=== PATIENT | female | born 1965 | race Caucasian/White ===

== ENCOUNTER 2017-01-17 07:29 | Day surgery (SDC) | payer OTHER ==
[2017-01-16 12:15] VITALS: BMI 27.4
[2017-01-17] MEDS ORDERED: PROPOFOL 20 ML ONE ×5 (09:18)
[2017-01-17 10:03] VITALS: TEMP 97.5
[2017-01-17 11:48] VITALS: BP 105/69; PULSE 60
--- NOTE | 2017-01-18 11:17 | PATH ---
Surgical Pathology Report Patient Name: JEROME BRAN [facility]. Rec. #: [id number] /Age/Gender: 1965 (Age: 51) / F Account: [id number] Location: [facility]-ENDOSCOPY Taken: 01/17/2017 Received: 01/17/2017 Reported: 01/18/2017 Physicians: Ian Moss D.O. Specimen(s) Received A: BX ANGULARIS & BODY B: SIGMOID POLYP Clinical History GERD, nausea, colon screening Nausea, sigmoid polyp Final Diagnosis A. STOMACH, ANGULARIS AND BODY, BIOPSY: FOCAL MILD CHRONIC GASTRITIS. IMMUNOSTAIN FOR H. PYLORI IS NEGATIVE. B. COLON, SIGMOID, BIOPSY: TUBULAR ADENOMA. Electronically Signed Baltazar Nicolas M.D. Gross Description A. Received in formalin, labeled "biopsy angularis and body" is a coelho, irregular portion of soft tissue measuring 0.5 cm. in greatest dimension. The specimen is submitted in toto in one cassette. B. Received in formalin, labeled "sigmoid polyp" is a coelho, irregular portion of soft tissue measuring 0.2 cm. in greatest dimension. The specimen is submitted in toto in one cassette. /01/17/2017 saudi01/17/2017
== END 2017-01-17 11:47 | disposition home or self-care (01) ==
LOC: JASU-ENDO 07:29
PROVIDERS: ATTEND Internal Medicine Gastroenterology
PROC: 0DB68ZX Excision of Stomach, Via Natural or Artificial Opening Endoscopic, Diagnostic (ICD-10-PCS; 2017-01-17)
PROC: 0DBN8ZX Excision of Sigmoid Colon, Via Natural or Artificial Opening Endoscopic, Diagnostic (ICD-10-PCS; principal; 2017-01-17 09:00)
DX: Z12.11 Encounter for screening for malignant neoplasm of colon (principal); D12.5 Benign neoplasm of sigmoid colon; K64.8 Other hemorrhoids; R11.0 Nausea
CPT/HCPCS: 88305-TC; 88342-TC

== ENCOUNTER 2017-07-24 08:30 | Emergency (ER) | payer OTHER ==
[2017-07-24 08:36] VITALS: BP 103/65; PULSE 69; TEMP 98.5; BMI 27.4
[2017-07-24] MEDS ORDERED: IBUPROFEN 600 MG TABLET (FP) PO ONE ×2 (09:16→09:19)
--- NOTE | 2017-07-24 10:17 | PDOC ---
History of Present Illness - General Chief Complaint: Pain Stated Complaint: LT LEG/ ANKLE PAIN Time Seen by Provider: 07/24/17 08:54 History Source: Patient Exam Limitations: No Limitations - History of Present Illness Initial Comments: 07/24/17 10:12 51 yr female with left foot pain for 2 days after doing moving at home, pt denies direct trauma . no fever, skin intact. Pt has pain to the inside of the foot and some mild redness to the inside of the foot. no joint pain . no swelling. 07/24/17 14:51 Severity: Yes: mild Past History - Past Medical History Allergies/Adverse Reactions: Allergies Allergy/AdvReac Type Severity Reaction Status Date / Time ivp Allergy Hives Uncoded 07/24/17 08:36 nuts Allergy Hives Uncoded 07/24/17 08:36 shellfish Allergy Hives Uncoded 07/24/17 08:36 Home Medications: Ambulatory Orders Ranitidine HCl [Zantac 75] 75 mg PO DAILY 06/12/12 Rizatriptan Benzoate [Maxalt] 10 mg PO PRN PRN 01/18/14 Amitriptyline HCl [Elavil -] 25 mg PO HS 06/21/16 Diclofenac Sodium 50 mg PO BID 06/21/16 Wheat Dextrin [Benefiber] 1 each PO DAILY 06/21/16 Cetirizine HCl [Zyrtec -] 10 mg PO HS 01/16/17 Anemia: No Asthma: No Cancer: No Cardiac Disorders: Yes (MVP) CVA: No COPD: No CHF: No Dementia: No Diabetes: No GI Disorders: Yes (IBS, REFLUX, GASTROPARESIS) Disorders: No HTN: No Hypercholesterolemia: No Liver Disease: No Seizures: No Thyroid Disease: No Other medical history: autoimmune disease - Surgical History Abdominal Surgery: No Appendectomy: No Cardiac Surgery: No Cholecystectomy: No Lung Surgery: No Neurologic Surgery: No Orthopedic Surgery: Yes (LEFT ROTART CUFF REPAIR) - Family Disease History Family Disease History: Heart Disease: Grandparents - Suicide/Smoking/Psychosocial Hx Smoking Status: No Smoking History: Never smoked Have you smoked in the past 12 months: No Number of Cigarettes Smoked Daily: 0 Hx Alcohol Use: No Drug/Substance Use Hx: No Substance Use Type: None Hx Substance Use Treatment: No Review of Systems - Review of Systems Able to Perform ROS?: Yes Is the patient limited Beninese proficient: No Constitutional: No: Symptoms Reported Musculoskeletal: Yes: Symptoms Reported Integumentary: No: Symptoms Reported *Physical Exam - Vital Signs Last Vital Signs Temp Pulse Resp BP Pulse Ox 98.5 F 69 20 103/65 96 07/24/17 08:34 07/24/17 08:34 07/24/17 08:34 07/24/17 08:34 07/24/17 08:34 - Physical Exam General Appearance: Yes: Nourished, Appropriately Dressed HEENT: positive: EOMI, SHAY Neck: positive: Supple. negative: Tender Respiratory/Chest: positive: Lungs Clear, Normal Breath Sounds. negative: Chest Tender Cardiovascular: positive: Regular Rhythm, Regular Rate Gastrointestinal/Abdominal: positive: Normal Bowel Sounds, Soft Musculoskeletal: positive: Normal Inspection Extremity: positive: Normal Capillary Refill, Normal Inspection, Normal Range of Motion, Tender (base of left foot no swelling or deformity, mild erythema to the medial side proximal foot , no joint tenderness) Integumentary: positive: Normal Color, Dry, Warm Neurologic: positive: Fully Oriented, Alert, Normal Mood/Affect, Normal Response , Motor Strength 5/5 Procedures - Splinting Progress: 07/24/17 10:19 alan wrap hard sole shoe to the left foot ED Treatment Course - RADIOLOGY Radiology Studies Ordered: Category Date Time Status ANKLE & FOOT-LEFT* [RAD] Stat Radiology 07/24/17 09:17 Taken Medical Decision Making - Medical Decision Making 07/24/17 10:18 cc: foot pain no history of gout pt has auto immune disorder no history of gout no history of direct trauma will xray to r/o fracture r/o arthritis no evidence of gout pt discharged home with strict follow up instructions all questions asked and answered 07/24/17 14:52 07/24/17 14:57 *DC/Admit/Observation/Transfer Diagnosis at time of Disposition: Foot pain, left - Discharge Dispostion Disposition: HOME Condition at time of disposition: Good - Referrals Referrals: Srinath Bullock MD [Primary Care Provider] - - Patient Instructions Additional Instructions: follow with your doctor for follow up if pain continues or worsens elevate the foot apply ice every 2hrs for 15 minutes, you can also alternate with heat take advil or motrin every 8hrs as directed use the alan wrap and hard sole shoe for comfort - Post Discharge Activity Forms/Work/School Notes: Back to Work
== END 2017-07-24 10:19 | disposition home or self-care (01) ==
LOC: JERFT 08:30
DX: M79.672 Pain in left foot (principal); I34.1 Nonrheumatic mitral (valve) prolapse; K21.9 Gastro-esophageal reflux disease without esophagitis; K58.9 Irritable bowel syndrome, unspecified; K31.84 Gastroparesis; D89.89 Other specified disorders involving the immune mechanism, not elsewhere classified
CPT/HCPCS: 73610-TC-LT; 73630-TC-LT; 99281-25

== ENCOUNTER 2018-01-29 08:36 | Emergency (ER) | payer OTHER ==
[2018-01-29 09:04] VITALS: BP 96/58; PULSE 79; TEMP 98.5; BMI 25.7
[2018-01-29] MEDS ORDERED: IBUPROFEN 400 MG TABLET (FP) PO ONE ×2 (09:07→09:09)
--- NOTE | 2018-01-29 09:12 | PDOC ---
History of Present Illness - General Chief Complaint: Pain Stated Complaint: LT JOINT PAIN Time Seen by Provider: 01/29/18 08:56 History Source: Patient Exam Limitations: No Limitations - History of Present Illness Initial Comments: 01/29/18 09:07 Came for evaluation of left knee pain that's progressively worsened although not severe the past week. 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 Has had no exercise changes. Denies fever, redness, or any lower leg swelling. No history of DVT, shortness of breath, chest pain or palpitations. And has taken ibuprofen or Tylenol with minimal resolved. 01/29/18 13:13 Occurred: reports: last week Severity: reports: moderate Pain Location: reports: lower extremity (left knee ) Method of Injury: Yes: unknown Modifying Factors: improves with: None Associated Symptoms (Fall): denies symptoms Past History - Travel Traveled outside of the country in the last 30 days: No Close contact w/someone who was outside of country & ill: No - Past Medical History Allergies/Adverse Reactions: Allergies Allergy/AdvReac Type Severity Reaction Status Date / Time Iodinated Contrast- Oral and Allergy Hives Verified 01/29/18 08:45 IV Dye ivp Allergy Hives Uncoded 01/29/18 08:45 nuts Allergy Hives Uncoded 01/29/18 08:45 shellfish Allergy Hives Uncoded 01/29/18 08:45 Home Medications: Ambulatory Orders Ranitidine HCl [Zantac 75] 75 mg PO DAILY 06/12/12 Rizatriptan Benzoate [Maxalt] 10 mg PO PRN PRN 01/18/14 Amitriptyline HCl [Elavil -] 25 mg PO HS 06/21/16 Diclofenac Sodium 50 mg PO BID 06/21/16 Wheat Dextrin [Benefiber] 1 each PO DAILY 06/21/16 Cetirizine HCl [Zyrtec -] 10 mg PO HS 01/16/17 Ibuprofen 400 mg PO Q6H PRN #30 tablet 01/29/18 Anemia: No Asthma: No Cancer: No Cardiac Disorders: Yes (MVP) CVA: No COPD: No CHF: No Dementia: No Diabetes: No GI Disorders: Yes (IBS, REFLUX, GASTROPARESIS) Disorders: No HTN: No Hypercholesterolemia: No Liver Disease: No Seizures: No Thyroid Disease: No - Surgical History Abdominal Surgery: No Appendectomy: No Cardiac Surgery: No Cholecystectomy: No Lung Surgery: No Neurologic Surgery: No Orthopedic Surgery: Yes (LEFT ROTART CUFF REPAIR) - Family Disease History Family Disease History: Heart Disease: Grandparents - Suicide/Smoking/Psychosocial Hx Smoking Status: No Smoking History: Never smoked Have you smoked in the past 12 months: No Number of Cigarettes Smoked Daily: 0 Hx Alcohol Use: No Drug/Substance Use Hx: No Substance Use Type: None Hx Substance Use Treatment: No Trauma Specific PMHX - Complaint Specific PMHX Arthritis: No Back Injury: No Neck Injury: No Hx Sacro Iliac Joint Dysfunction: No Review of Systems - Review of Systems Able to Perform ROS?: Yes Is the patient limited Kazakh proficient: Yes Constitutional: Yes: See HPI. No: Symptoms Reported, Malaise HEENTM: Yes: See HPI. No: Symptoms Reported : No: Symptoms Reported Musculoskeletal: Yes: Symptoms Reported, See HPI, Joint Pain, Joint Swelling ( left knee, primarily posterior fossa) Neurological: No: Symptoms reported All Other Systems: Reviewed and Negative *Physical Exam - Vital Signs Last Vital Signs Temp Pulse Resp BP Pulse Ox 98.5 F 79 19 96/58 99 01/29/18 08:45 01/29/18 08:45 01/29/18 08:45 01/29/18 08:45 01/29/18 08:45 - Physical Exam General Appearance: Yes: Nourished, Appropriately Dressed. No: Apparent Distress HEENT: positive: SHAY, Normal ENT Inspection, TMs Normal, Pharynx Normal Neck: positive: Supple. negative: Tender Respiratory/Chest: positive: Lungs Clear Musculoskeletal: positive: Normal Inspection. negative: Vertebral Tenderness Extremity: positive: Normal Inspection, Normal Range of Motion (ambulatory without unsteadiness or limp. Has no fullness, no reproduced tenderness in posterior fossa. Knee is stable without tenderness reproduced along medial or lateral aspects. 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 Recommended neoprene sleeve, NSAIDs, and follow-up with Dr. Moreau who she has seen in the past for other knee issues. *DC/Admit/Observation/Transfer Diagnosis at time of Disposition: Knee pain, left Qualifiers: Chronicity: acute Qualified Code(s): M25.562 - Pain in left knee - Discharge Dispostion Disposition: HOME Condition at time of disposition: Stable Decision to Admit order: No - Prescriptions Prescriptions: Ibuprofen 400 mg PO Q6H PRN #30 tablet PRN Reason: Pain - Referrals Referrals: Miguel Moreau MD [Staff Physician] - - Patient Instructions Printed Discharge Instructions: DI for Knee Pain Additional Instructions: Rest, ice to area on and off for 15 minutes 4-6 times a day Avoid heavy lifting or exercise until pain and swelling is resolved or until further directed Keep area highly elevated to reduce swelling Use splints/Nasim wrap as directed Followup with orthopedist in one to 2 days if not improving, if significantly improved may wait one week for followup with orthopedist May use ibuprofen 2-200 mg tablets every 6 hours as needed for pain - Post Discharge Activity Forms/Work/School Notes: Back to Work
== END 2018-01-29 09:19 | disposition home or self-care (01) ==
LOC: JER 08:36
DX: S86.112A Strain of other muscle(s) and tendon(s) of posterior muscle group at lower leg level, left leg, initial encounter (principal); X58.XXXA Exposure to other specified factors, initial encounter; Y93.89 Activity, other specified; Y92.89 Other specified places as the place of occurrence of the external cause; Y99.8 Other external cause status; I34.1 Nonrheumatic mitral (valve) prolapse; Z87.19 Personal history of other diseases of the digestive system
CPT/HCPCS: 99281-25

== ENCOUNTER 2018-07-09 12:23 | Emergency (ER) | payer OTHER ==
[2018-07-09 12:40] VITALS: BP 103/73; PULSE 71; TEMP 98.5; BMI 23.1
--- NOTE | 2018-07-09 13:23 | PDOC ---
History of Present Illness - General Chief Complaint: Cold Symptoms Stated Complaint: COUGHING Time Seen by Provider: 07/09/18 13:13 - History of Present Illness Initial Comments: 07/09/18 13:19 2-year-old female presents for evaluation of cough and runny nose 3 days without associated symptoms Past History - Past Medical History Allergies/Adverse Reactions: Allergies Allergy/AdvReac Type Severity Reaction Status Date / Time Iodinated Contrast- Oral and Allergy Hives Verified 07/09/18 12:40 IV Dye ivp Allergy Hives Uncoded 07/09/18 12:40 nuts Allergy Hives Uncoded 07/09/18 12:40 shellfish Allergy Hives Uncoded 07/09/18 12:40 Home Medications: Ambulatory Orders Ranitidine HCl [Zantac 75] 75 mg PO DAILY 06/12/12 Rizatriptan Benzoate [Maxalt] 10 mg PO PRN PRN 01/18/14 Diclofenac Sodium 50 mg PO BID 06/21/16 Wheat Dextrin [Benefiber] 1 each PO DAILY 06/21/16 Cetirizine HCl [Zyrtec -] 10 mg PO HS 01/16/17 Ibuprofen 400 mg PO Q6H PRN #30 tablet 01/29/18 Anemia: No Asthma: No Cancer: No Cardiac Disorders: Yes (MVP) CVA: No COPD: No CHF: No Dementia: No Diabetes: No GI Disorders: Yes (IBS, REFLUX, GASTROPARESIS) Disorders: No HTN: No Hypercholesterolemia: No Liver Disease: No Seizures: No Thyroid Disease: No - Surgical History Abdominal Surgery: No Appendectomy: No Cardiac Surgery: No Cholecystectomy: No Lung Surgery: No Neurologic Surgery: No Orthopedic Surgery: Yes (LEFT ROTART CUFF REPAIR) - Family Disease History Family Disease History: Heart Disease: Grandparents - Suicide/Smoking/Psychosocial Hx Smoking Status: No Smoking History: Never smoked Have you smoked in the past 12 months: No Number of Cigarettes Smoked Daily: 0 Hx Alcohol Use: No Drug/Substance Use Hx: No Substance Use Type: None Hx Substance Use Treatment: No Review of Systems - Review of Systems Constitutional: Yes: See HPI. No: Chills, Diaphoresis, Fever, Malaise, Night Sweats HEENTM: Yes: See HPI, Nose Congestion Respiratory: Yes: Cough All Other Systems: Reviewed and Negative *Physical Exam - Vital Signs Last Vital Signs Temp Pulse Resp BP Pulse Ox 98.5 F 71 18 103/73 100 07/09/18 12:38 07/09/18 12:38 07/09/18 12:38 07/09/18 12:38 07/09/18 12:38 - Physical Exam Comments: HEAD: NC/AT EYES: Conjuntiva clear Ears: Canals and TM's normal NOSE: Clear rhinorrhea THROAT: Moist mucous membrances, oral pharanx clear, uvula midline NECK: Supple without adenopathy CARDIAC: S1 S2 LUNGS: CTA Full and Equal breath sounds ABDOMEN: Soft NT ND MS: Full ROM in all joints without edema NEUROLOGIC: No gross sensory or motor deficits, NVID SKIN: Normal color and temperature no lesions or rashes 07/09/18 13:20 *DC/Admit/Observation/Transfer Diagnosis at time of Disposition: Viral upper respiratory infection - Discharge Dispostion Disposition: HOME Condition at time of disposition: Stable Decision to Admit order: No - Referrals Referrals: Eric Rodriguez [Non Staff, Medical] - - Patient Instructions Printed Discharge Instructions: DI for Viral Upper Respiratory Infection -- Adult Additional Instructions: Return to the emergency room should symptoms worsen or go unresolved artery develop a fever. Follow-up with your primary care physician or the recommended for you in one to 2 days for further evaluation and treatment options. Mucinex DM and will help with her coughing topi sleep at night may take Tylenol and Motrin as needed and as directed. - Post Discharge Activity
== END 2018-07-09 13:25 | disposition home or self-care (01) ==
LOC: JERFT 12:23
DX: J06.9 Acute upper respiratory infection, unspecified (principal); I34.1 Nonrheumatic mitral (valve) prolapse; K58.9 Irritable bowel syndrome, unspecified; K21.9 Gastro-esophageal reflux disease without esophagitis
CPT/HCPCS: 99281-25

== ENCOUNTER 2018-07-31 07:41 | Emergency (ER) | payer OTHER ==
--- NOTE | 2018-07-31 07:50 | PDOC ---
History of Present Illness - General Chief Complaint: Injury Stated Complaint: FALL Time Seen by Provider: 07/31/18 07:48 - History of Present Illness Initial Comments: Chief complaint knee pain History of present illness: 52 years old past medical history significant for mitral valve prolapse, neuropathy, presents ED status post mechanical fall. Patient tripped on an uneven surface in a parking lot landed on her right knee sustained abrasions to the right knee. There was no prodrome of headache dizziness lightheadedness shortness of breath chest pain prior to the fall. She is complaining of very mild to 10 pain to the knee exacerbated by movement alleviated by rest Past History - Past Medical History Allergies/Adverse Reactions: Allergies Allergy/AdvReac Type Severity Reaction Status Date / Time Iodinated Contrast- Oral and Allergy Hives Verified 07/31/18 07:50 IV Dye ivp Allergy Hives Uncoded 07/31/18 07:50 nuts Allergy Hives Uncoded 07/31/18 07:50 shellfish Allergy Hives Uncoded 07/31/18 07:50 Home Medications: Ambulatory Orders Ranitidine HCl [Zantac 75] 150 mg PO DAILY 06/12/12 Gabapentin [Neurontin -] 300 mg PO BID 07/31/18 Anemia: No Asthma: No Cancer: No Cardiac Disorders: Yes (MVP) CVA: No COPD: No CHF: No Dementia: No Diabetes: No GI Disorders: Yes (IBS, REFLUX, GASTROPARESIS) Disorders: No HTN: No Hypercholesterolemia: No Liver Disease: No Seizures: No Thyroid Disease: No Other medical history: Raynauds dis. - Surgical History Abdominal Surgery: No Appendectomy: No Cardiac Surgery: No Cholecystectomy: No Lung Surgery: No Neurologic Surgery: No Orthopedic Surgery: Yes (LEFT ROTART CUFF REPAIR) - Family Disease History Family Disease History: Heart Disease: Grandparents - Suicide/Smoking/Psychosocial Hx Smoking Status: No Smoking History: Never smoked Have you smoked in the past 12 months: No Number of Cigarettes Smoked Daily: 0 Information on smoking cessation initiated: No Hx Alcohol Use: No Drug/Substance Use Hx: No Substance Use Type: None Hx Substance Use Treatment: No Review of Systems - Review of Systems Comments:: 07/31/18 08:53 ROS: A complete review of 10 out of 10 review of systems is taken and is negative apart from what is previously mentioned below and in the HPI. *Physical Exam - Physical Exam Comments: 07/31/18 08:54 Vitals: Triage Vital signs reviewed General Appearance: no acute distress, well nourished well developed, Head: Atraumatic, Extremities: Full range of motion to all extremities, no cyanosis, clubbing, or edema Skin: Warm and dry, 3 abrasions to right knee Neuro: Strength intact to all extremities, Sensation intact to all extremities, gait normal Psych: normal mood, normal affect Medical Decision Making - Medical Decision Making 07/31/18 08:55 Well-appearing no apparent distress status post mechanical fall abrasions to knee. Tetanus updated x-ray obtained patient comfortable able to ambulate no acute fracture dislocation noted. Provided with note for work and case swelling increases Findings, the need for follow-up and strict return instructions discussed with patient. *DC/Admit/Observation/Transfer Diagnosis at time of Disposition: Abrasion Knee pain Qualifiers: Chronicity: acute Laterality: right Qualified Code(s): M25.561 - Pain in right knee - Discharge Dispostion Disposition: HOME Condition at time of disposition: Good Decision to Admit order: No - Referrals Referrals: Miguel Moreau MD [Staff Physician] - - Patient Instructions Printed Discharge Instructions: DI for Knee Pain Additional Instructions: Apply bacitracin twice a day. Ice 20 minutes on 20 minutes off. Take over-the- counter Tylenol Motrin as needed for pain as directed on package. Rest. If still having pain for greater than a few days follow-up with Dr. carbajal orthopedics return to the emergency department for any concerns. - Post Discharge Activity Forms/Work/School Notes: Back to Work
[2018-07-31 07:51] VITALS: BP 110/82; PULSE 73; TEMP 98; BMI 24.0
[2018-07-31] MEDS ORDERED: BACITRACIN 0.9 GM PACKET ONE (08:27)
[2018-07-31] MEDS ORDERED: DIPHTH,PERTUSS(ACELL),TET 0.5 ML DISP.SYRIN IM ONE (08:49)
== END 2018-07-31 09:16 | disposition home or self-care (01) ==
LOC: JER 07:41
PROC: 3E0234Z Introduction of Serum, Toxoid and Vaccine into Muscle, Percutaneous Approach (ICD-10-PCS; principal; 2018-07-31)
DX: S80.211A Abrasion, right knee, initial encounter (principal); M25.561 Pain in right knee; W18.39XA Other fall on same level, initial encounter; Y93.89 Activity, other specified; Y92.481 Parking lot as the place of occurrence of the external cause; Y99.8 Other external cause status
CPT/HCPCS: 73562-TC-RT-FY; 90715; 99282-25

== ENCOUNTER 2019-01-12 16:06 | Emergency (ER) | payer OTHER ==
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
[2019-01-12 16:24] VITALS: BP 96/63; PULSE 70; TEMP 97.5; BMI 25.7
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
== END 2019-01-12 17:27 | disposition home or self-care (01) ==
LOC: JERFT 16:06
DX: S20.211A Contusion of right front wall of thorax, initial encounter (principal); S80.02XA Contusion of left knee, initial encounter; S80.01XA Contusion of right knee, initial encounter; V79.88XA Bus occupant (driver) (passenger) injured in other specified transport accidents, initial encounter; Y93.89 Activity, other specified; Y92.414 Local residential or business street as the place of occurrence of the external cause; Y99.8 Other external cause status; I34.1 Nonrheumatic mitral (valve) prolapse; Z87.19 Personal history of other diseases of the digestive system
CPT/HCPCS: 71111-TC-FY; 99281-25

== ENCOUNTER 2019-11-05 12:02 | Emergency (ER) | payer OTHER ==
[2019-11-05 12:18] VITALS: BMI 24.3
[2019-11-05 13:12] LABS: EOS % 1.5 % (0-4.5); HEMATOCRIT 38.6 % (32.4-45.2); HEMOGLOBIN 13.2 GM/dL (10.7-15.3); LYMPH % 43.8 % (8-40); MCH 28.2 pg (25.7-33.7); MCHC 34.1 g/dl (32.0-36.0); MEAN CELL VOLUME 82.8 fl (80-96); NEUT % 44.7 % (42.8-82.8); PLATELET COUNT 244 K/MM3 (134-434); RBC 4.66 M/mm3 (3.60-5.2); RDW 13.6 % (11.6-15.6); WHITE BLOOD COUNT 4.1 K/mm3 (4.0-10.0)
--- NOTE | 2019-11-05 13:17 | PDOC ---
History of Present Illness <Amado Ugarte - Last Filed: 11/05/19 14:40> <Timothy Baldwin - Last Filed: 11/05/19 16:49> - General Chief Complaint: Lightheaded Stated Complaint: Lightheaded Time Seen by Provider: 11/05/19 12:56 Past History - Past Medical History Anemia: No Asthma: No Cancer: No Cardiac Disorders: Yes (MVP) CVA: No COPD: No CHF: No Dementia: No Diabetes: No GI Disorders: Yes (IBS, REFLUX, GASTROPARESIS) Disorders: No HTN: No Hypercholesterolemia: No Liver Disease: No Seizures: No Thyroid Disease: No - Surgical History Abdominal Surgery: No Appendectomy: No Cardiac Surgery: No Cholecystectomy: No Lung Surgery: No Neurologic Surgery: No Orthopedic Surgery: Yes (LEFT ROTART CUFF REPAIR) - Immunization History Immunization Up to Date: Yes - Psycho Social/Smoking Cessation Hx Smoking Status: No Smoking History: Never smoked Have you smoked in the past 12 months: No Number of Cigarettes Smoked Daily: 0 Hx Alcohol Use: No Drug/Substance Use Hx: No Substance Use Type: None Hx Substance Use Treatment: No <Amado Ugarte - Last Filed: 11/05/19 14:40> <Timothy Baldwin - Last Filed: 11/05/19 16:49> - Past Medical History Allergies/Adverse Reactions: Allergies Allergy/AdvReac Type Severity Reaction Status Date / Time Iodinated Contrast Media Allergy Hives Verified 11/05/19 12:19 [Iodinated Contrast- Oral and IV Dye] ivp Allergy Hives Uncoded 11/05/19 12:19 nuts Allergy Hives Uncoded 11/05/19 12:19 shellfish Allergy Hives Uncoded 11/05/19 12:19 Home Medications: Ambulatory Orders Ranitidine HCl [Zantac 75] 150 mg PO DAILY 06/12/12 Gabapentin [Neurontin -] 300 mg PO BID 07/31/18 Rizatriptan Benzoate [Maxalt] 10 mg PO DAILY 11/05/19 *Physical Exam - Vital Signs Last Vital Signs Temp Pulse Resp BP Pulse Ox 98.1 F 72 18 125/87 100 11/05/19 12:15 11/05/19 12:15 11/05/19 12:15 11/05/19 12:15 11/05/19 12:15 11/05/19 14:03 54 y/o female PMH migraines, GERD, CTS, and Raynaud's brought to ED after rapid response called for feeling of dizziness. 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 Similar but not exact experiences have happened before and were treated with meclizine. She did not lose consciousness, have tongue biting , aura. She has not traveled or have leg/calf pain. She has not tried new foods/ meds/herbs/supplements. She denies cardiac hx and felt no palpitations. She has not have any vomiting or diarrhea. She denies recent illness, sick contacts, fever, nausea, and chills. Her only medication is Nuerontin 300 mg BID. She denies hematuria, hematochezia, recent weight loss. CBC, CMP, EKG, Cardiac profile 11/05/19 14:40 <Amado Ugarte - Last Filed: 11/05/19 14:40> - Vital Signs Last Vital Signs Temp Pulse Resp BP Pulse Ox 98.1 F 72 18 125/87 100 11/05/19 12:15 11/05/19 12:15 11/05/19 12:15 11/05/19 12:15 11/05/19 12:15 <Timothy Baldwin - Last Filed: 11/05/19 16:49> ED Treatment Course - LABORATORY CBC & Chemistry Diagram: 11/05/19 12:54 11/05/19 12:54 - ADDITIONAL ORDERS Additional order review: Laboratory Results 11/05/19 12:29 POC Glucometer 79 11/05/19 12:29 POC Glucometer 79 <Amado Ugarte - Last Filed: 11/05/19 14:40> - LABORATORY CBC & Chemistry Diagram: 11/05/19 12:54 11/05/19 12:54 - ADDITIONAL ORDERS Additional order review: Laboratory Results 11/05/19 11/05/19 12:54 12:29 Sodium 141 Potassium 4.1 Chloride 109 H Carbon Dioxide 28 Anion Gap 4 L BUN 17.2 Creatinine 0.7 Est GFR (CKD-EPI)AfAm 112.26 Est GFR (CKD-EPI)NonAf 96.86 POC Glucometer 79 Random Glucose 89 Calcium 9.4 Total Bilirubin 0.5 AST 22 ALT 31 Alkaline Phosphatase 100 Creatine Kinase 88 Troponin I < 0.02 Total Protein 7.6 Albumin 3.7 11/05/19 11/05/19 12:54 12:29 RBC 4.66 MCV 82.8 MCHC 34.1 RDW 13.6 MPV 8.0 Neutrophils % 44.7 Lymphocytes % 43.8 H Monocytes % 9.0 Eosinophils % 1.5 Basophils % 1.0 POC Glucometer 79 <Timothy Baldwin - Last Filed: 11/05/19 16:49> Discharge <Amado Ugarte - Last Filed: 11/05/19 14:40> - Discharge Information Problems reviewed: Yes - Admission No <Timothy Baldwin - Last Filed: 11/05/19 16:49> - Discharge Information Clinical Impression/Diagnosis: Vertigo Condition: Improved Disposition: HOME - Follow up/Referral Referrals: Jason Reyna MD [Primary Care Provider] - Donavon Elam MD [Staff Physician] - - Patient Discharge Instructions Patient Printed Discharge Instructions: Vertigo Additional Instructions: Come back to the emergency department for any new, worsening or concerning symptom. Follow up with your primary care physician or with your neurologist within the next 2 week. - Post Discharge Activity
[2019-11-05 13:46] LABS: ALBUMIN 3.7 g/dl (3.4-5.0); ALK PHOS 100 U/L (45-117); ANION GAP 4 MMOL/L (8-16); BILIRUBIN,TOTAL 0.5 mg/dL (0.2-1); BLOOD UREA NITROGEN 17.2 mg/dL (7-18); CALCIUM 9.4 mg/dL (8.5-10.1); CHLORIDE 109 mmol/L (98-107); CO2 28 mmol/L (21-32); CREATININE 0.7 mg/dL (0.55-1.3); GLUCOSE,RANDOM 89 mg/dL (74-106); POTASSIUM 4.1 mmol/L (3.5-5.1); SGOT/AST 22 U/L (15-37); SGPT/ALT 31 U/L (13-61); SODIUM 141 mmol/L (136-145); TOT PROT 7.6 g/dl (6.4-8.2)
--- NOTE | 2019-11-05 14:49 | PDOC ---
Documentation entered by Rosey Higgins SCRIBE, acting as scribe for Karen Dc MD. Karen Dc MD: This documentation has been prepared by the Ronaldo do Brenda, SCRIBE, under my direction and personally reviewed by me in its entirety. I confirm that the documentation accurately reflects all work, treatment, procedures, and medical decision making performed by me. Attending Attestation - Resident Resident Name: Amado Ugarte - ED Attending Attestation I have performed the following: I have examined & evaluated the patient, The case was reviewed & discussed with the resident, I agree w/resident's findings & plan, Exceptions are as noted - HPI HPI: 11/06/19 09:46 PT presents to the ED complaining of an episode of vertigo that spontaneously resolved. History of vertigo in the past. Denies chest pain or shortness of breath, nausea or vomiting. Now is symptom free. - Physicial Exam PE: 11/06/19 09:48 Agree with resident exam. Patient is alert and oriented and in no acute distress. HEENT: normocephalic atraumatic. CV RRR no m/r/g Pulm cta b/l abdomen soft, nt/nd neuro: alert and oriented x 3, ambulatory with steady gait. - Medical Decision Making 11/05/19 14:16 Pt presents to the ED complaining of a brief episode of vertigo that has now resolved. Denies chest pain or shortness of breath. Denies nausea or vomiting. Most likely BPV. Will check labs to rule out electrolyte imbalance and likely discharge home if labs are within normal limits. 11/05/19 14:48
--- NOTE | 2019-11-05 16:52 | PDOC ---
*Physical Exam - Vital Signs Last Vital Signs Temp Pulse Resp BP Pulse Ox 98.1 F 72 18 125/87 100 11/05/19 12:15 11/05/19 12:15 11/05/19 12:15 11/05/19 12:15 11/05/19 12:15 11/05/19 16:51 REVIEW OF SYSTEMS CONSTITUTIONAL: Absent: fever, chills, diaphoresis, generalized weakness, malaise, loss of appetite, weight change HEENT: Absent: rhinorrhea, nasal congestion, throat pain, throat swelling, difficulty swallowing, mouth swelling, ear pain, eye pain, visual changes CARDIOVASCULAR: Absent: chest pain, syncope, palpitations, irregular heart rate, lightheadedness , peripheral edema RESPIRATORY: Absent: cough, shortness of breath, dyspnea with exertion, orthopnea, wheezing, stridor, hemoptysis GASTROINTESTINAL: Absent: abdominal pain, abdominal distension, nausea, vomiting, diarrhea, constipation, melena, hematochezia GENITOURINARY: Absent: dysuria, frequency, urgency, hesitancy, hematuria, flank pain, genital pain MUSCULOSKELETAL: Absent: myalgia, arthralgia, joint swelling, back pain, neck pain SKIN: Absent: rash, itching, pallor HEMATOLOGIC/IMMUNOLOGIC: Absent: easy bleeding, easy bruising, lymphadenopathy, frequent infections ENDOCRINE: Absent: unexplained weight gain, unexplained weight loss, heat intolerance, cold intolerance NEUROLOGIC: Absent: headache, focal weakness or paresthesias, dizziness, unsteady gait, seizure, mental status changes, bladder or bowel incontinence PSYCHIATRIC: Absent: anxiety, depression, suicidal or homicidal ideation, hallucinations. GENERAL: AO x3 NAD HEAD: NCAT EYES: FLORESITA, EOMI, sclera anicteric, conjunctiva clear. No ptosis. ENT: Ears normal, nares patent, oropharynx clear without exudates, moist mucous membranes. NECK: Trachea midline, full range of motion, supple. LUNGS: CTAB , no wheezes, no crackles, no accessory muscle use. HEART: RRR, S1, S2 without murmur, rub or gallop. ABDOMEN: Soft, nontender, nondistended, normoactive bowel sounds, no guarding, no rebound, no hepatosplenomegaly, no masses. EXTREMITIES: 2+ pulses, warm, well-perfused, no edema. NEUROLOGICAL: Cranial nerves II through XII grossly intact. Normal speech, gait not observed. PSYCH: Normal mood, normal affect. SKIN: Warm, dry, normal turgor, no rashes or lesions noted 11/20/19 07:58 ED Treatment Course - LABORATORY CBC & Chemistry Diagram: 11/05/19 12:54 11/05/19 12:54 - ADDITIONAL ORDERS Additional order review: Laboratory Results 11/05/19 11/05/19 12:54 12:29 Sodium 141 Potassium 4.1 Chloride 109 H Carbon Dioxide 28 Anion Gap 4 L BUN 17.2 Creatinine 0.7 Est GFR (CKD-EPI)AfAm 112.26 Est GFR (CKD-EPI)NonAf 96.86 POC Glucometer 79 Random Glucose 89 Calcium 9.4 Total Bilirubin 0.5 AST 22 ALT 31 Alkaline Phosphatase 100 Creatine Kinase 88 Troponin I < 0.02 Total Protein 7.6 Albumin 3.7 11/05/19 11/05/19 12:54 12:29 RBC 4.66 MCV 82.8 MCHC 34.1 RDW 13.6 MPV 8.0 Neutrophils % 44.7 Lymphocytes % 43.8 H Monocytes % 9.0 Eosinophils % 1.5 Basophils % 1.0 POC Glucometer 79 Discharge - Discharge Information Problems reviewed: Yes Clinical Impression/Diagnosis: Vertigo Condition: Improved Disposition: HOME - Follow up/Referral Referrals: Jason Reyna MD [Primary Care Provider] - Donavon Elam MD [Staff Physician] - - Patient Discharge Instructions Patient Printed Discharge Instructions: Vertigo Additional Instructions: Come back to the emergency department for any new, worsening or concerning symptom. Follow up with your primary care physician or with your neurologist within the next 2 week. - Post Discharge Activity Work/Back to School Note: Back to Work
[2019-11-05 16:53] VITALS: BP 111/71; PULSE 66; TEMP 97.7
--- NOTE | 2019-11-07 17:23 | EKG ---
Test Reason : Blood Pressure : / mmHG Vent. Rate : 063 BPM Atrial Rate : 063 BPM P-R Int : 166 ms QRS Dur : 112 ms QT Int : 398 ms P-R-T Axes : 056 006 029 degrees QTc Int : 407 ms NORMAL SINUS RHYTHM POSSIBLE LEFT ATRIAL ENLARGEMENT INCOMPLETE RIGHT BUNDLE BRANCH BLOCK BORDERLINE ECG WHEN COMPARED WITH ECG OF 21-JUN-2016 14:35, NO SIGNIFICANT CHANGE WAS FOUND Confirmed by ANTONIO BECERRIL, ARACELI ([id number]) on 11/07/2019 5:22:50 PM Referred By: Confirmed By:ARACELI ALVAREZ MD
== END 2019-11-05 17:38 | disposition home or self-care (01) ==
LOC: JER 12:02
DX: R42 Dizziness and giddiness (principal); I34.1 Nonrheumatic mitral (valve) prolapse; G43.909 Migraine, unspecified, not intractable, without status migrainosus; Z87.19 Personal history of other diseases of the digestive system; Z91.041 Radiographic dye allergy status; Z91.013 Allergy to seafood; Z91.018 Allergy to other foods
CPT/HCPCS: 36415; 80053; 82550; 82962; 84484; 85025; 93005; 93010; 99284-25

== ENCOUNTER 2019-11-26 15:30 | Emergency (ER) | payer OTHER ==
[2019-11-26 15:33] VITALS: BP 107/69; PULSE 75; TEMP 98.4; BMI 25.7
--- NOTE | 2019-11-26 15:33 | PDOC ---
Rapid Medical Evaluation Chief Complaint: Pain, Acute Time Seen by Provider: 11/26/19 15:31 Medical Evaluation: Allergies Allergy/AdvReac Type Severity Reaction Status Date / Time Iodinated Contrast Media Allergy Hives Verified 11/05/19 12:19 [Iodinated Contrast- Oral and IV Dye] ivp Allergy Hives Uncoded 11/05/19 12:19 nuts Allergy Hives Uncoded 11/05/19 12:19 shellfish Allergy Hives Uncoded 11/05/19 12:19 11/26/19 15:31 I have performed a brief in-person evaluation of this patient. The patient presents with a chief complaint of: left hamstring pain with flexion of L knee since yesterday Pertinent physical exam findings: no swelling, redness I have ordered the following: nothing The patient will proceed to the ED for further evaluation. Discharge Disposition - Diagnosis Left leg pain - Discharge Dispostion Condition at time of disposition: Stable - Referrals - Patient Instructions - Post Discharge Activity
--- NOTE | 2019-11-26 15:51 | PDOC ---
History of Present Illness - General Chief Complaint: Pain, Acute Stated Complaint: LFT KNEE PAIN Time Seen by Provider: 11/26/19 15:31 History Source: Patient Exam Limitations: No Limitations - History of Present Illness Initial Comments: 11/26/19 15:47 Patient is here with complaints of left knee pain. States has had onset of pain approximately 2 days ago this progressively worsened and feels like she has to limp to walk today. Denies any recent trauma, no changes in exercise or activity, denies any heavy lifting or known strain. Has used no medications for relief. Has had Dr. Ochoa to evaluate her knees in the past and states suffers from arthritic changes and some chronic fatigue syndrome but states this kind of limping pain is new Occurred: reports: yesterday Severity: reports: mild, moderate Pain Location: reports: lower extremity (Left knee) Method of Injury: Yes: unknown. No: assault, direct blow, fall Modifying Factors: improves with: None Loss of Consciousness: no loss of consciousness Associated Symptoms (Fall): denies symptoms Past History - Travel Traveled outside of the country in the last 30 days: No Close contact w/someone who was outside of country & ill: No - Past Medical History Allergies/Adverse Reactions: Allergies Allergy/AdvReac Type Severity Reaction Status Date / Time Iodinated Contrast Media Allergy Hives Verified 11/05/19 12:19 [Iodinated Contrast- Oral and IV Dye] ivp Allergy Hives Uncoded 11/05/19 12:19 nuts Allergy Hives Uncoded 11/05/19 12:19 shellfish Allergy Hives Uncoded 11/05/19 12:19 Home Medications: Ambulatory Orders Ranitidine HCl [Zantac 75] 150 mg PO DAILY 06/12/12 Gabapentin [Neurontin -] 300 mg PO BID 07/31/18 Rizatriptan Benzoate [Maxalt] 10 mg PO DAILY 11/05/19 Anemia: No Asthma: No Cancer: No Cardiac Disorders: Yes (MVP) CVA: No COPD: No CHF: No Dementia: No Diabetes: No GI Disorders: Yes (IBS, REFLUX, GASTROPARESIS) Disorders: No HTN: No Hypercholesterolemia: No Liver Disease: No Seizures: No Thyroid Disease: No - Surgical History Abdominal Surgery: No Appendectomy: No Cardiac Surgery: No Cholecystectomy: No Lung Surgery: No Neurologic Surgery: No Orthopedic Surgery: Yes (LEFT ROTART CUFF REPAIR) - Immunization History Immunization Up to Date: Yes - Psycho Social/Smoking Cessation Hx Smoking Status: No Smoking History: Never smoked Have you smoked in the past 12 months: No Number of Cigarettes Smoked Daily: 0 Information on smoking cessation initiated: No Hx Alcohol Use: No Drug/Substance Use Hx: No Substance Use Type: None Hx Substance Use Treatment: No Trauma Specific PMHX - Complaint Specific PMHX Arthritis: No Back Injury: No Neck Injury: No Hx Sacro Iliac Joint Dysfunction: No Review of Systems - Review of Systems Able to Perform ROS?: Yes Is the patient limited Malay proficient: Yes Constitutional: Yes: Symptoms Reported, See HPI, Malaise. No: Fever HEENTM: Yes: See HPI. No: Symptoms Reported Respiratory: Yes: See HPI. No: Symptoms reported Musculoskeletal: Yes: Symptoms Reported, See HPI, Joint Pain (Left knee). No: Joint Swelling, Muscle Pain, Muscle Weakness Integumentary: Yes: See HPI. No: Symptoms Reported, Bruising, Change in Color, Rash Neurological: No: Symptoms reported All Other Systems: Reviewed and Negative *Physical Exam - Vital Signs Last Vital Signs Temp Pulse Resp BP Pulse Ox 98.4 F 75 16 107/69 96 11/26/19 15:31 11/26/19 15:31 11/26/19 15:31 11/26/19 15:31 11/26/19 15:31 - Physical Exam General Appearance: Yes: Nourished, Appropriately Dressed. No: Apparent Distress HEENT: positive: SHAY, Normal ENT Inspection, TMs Normal, Pharynx Normal Neck: positive: Supple. 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, Fully Oriented, Alert, Normal Mood/Affect, Normal Response, Motor Strength 5/5 ED Treatment Course - RADIOLOGY Radiology Studies Ordered: Category Date Time Status DUPLEX VASCUL US-1 LEG [US] Stat Ultrasound 11/26/19 15:46 Ordered Medical Decision Making - Medical Decision Making 11/26/19 17:40 US =no pathology/ pop cyst Discharge - Discharge Information Problems reviewed: Yes Clinical Impression/Diagnosis: Strain of left knee Qualifiers: Encounter type: initial encounter Qualified Code(s): S86.912A - Strain of unspecified muscle(s) and tendon(s) at lower leg level, left leg, initial encounter Condition: Stable Disposition: HOME - Admission No - Follow up/Referral Referrals: Miguel Moreau MD [Staff Physician] - - Patient Discharge Instructions Patient Printed Discharge Instructions: DI for Knee Sprain Additional Instructions: Rest, avoid strenuous activity or exercise until symptoms resolve Elevate, ice, may use compression with Nasim wraps or splinting as directed May use ibuprofen or Tylenol for swelling or pain relief Follow-up with PCP or orthopedist for reevaluation in 2 to 3 days Return to emergency department for worsened pain, swelling, fevers, or other complications - Post Discharge Activity Work/Back to School Note: Back to Work
== END 2019-11-26 16:54 | disposition home or self-care (01) ==
LOC: JERFT 15:30
DX: S86.212A Strain of muscle(s) and tendon(s) of anterior muscle group at lower leg level, left leg, initial encounter (principal); X58.XXXA Exposure to other specified factors, initial encounter; Y93.89 Activity, other specified; Y92.89 Other specified places as the place of occurrence of the external cause; Y99.8 Other external cause status; Z87.19 Personal history of other diseases of the digestive system; Z91.041 Radiographic dye allergy status; Z91.013 Allergy to seafood; Z91.018 Allergy to other foods
CPT/HCPCS: 93971-TC; 99284-25

== ENCOUNTER 2020-06-29 10:32 | Emergency (ER) | payer OTHER ==
[2020-06-29 10:56] VITALS: BP 109/77; PULSE 69; TEMP 98.1; BMI 25.7
--- NOTE | 2020-06-29 10:59 | PDOC ---
History of Present Illness - General Chief Complaint: Rash Stated Complaint: RT BREAST IRRITATION Time Seen by Provider: 06/29/20 10:45 History Source: Patient - History of Present Illness Timing/Duration: reports: week Location: reports: other (inframammary) Past History - Medical History Allergies/Adverse Reactions: Allergies Allergy/AdvReac Type Severity Reaction Status Date / Time Iodinated Contrast Media Allergy Hives Verified 06/29/20 10:44 [Iodinated Contrast- Oral and IV Dye] ivp Allergy Hives Uncoded 06/29/20 10:44 nuts Allergy Hives Uncoded 06/29/20 10:44 shellfish Allergy Hives Uncoded 06/29/20 10:44 Home Medications: Ambulatory Orders Ranitidine HCl [Zantac 75] 150 mg PO DAILY 06/12/12 Gabapentin [Neurontin -] 300 mg PO BID 07/31/18 Rizatriptan Benzoate [Maxalt] 10 mg PO DAILY 11/05/19 Clotrimazole [Alevazol] 56.7 gm TP BID #1 oint...g. 06/29/20 Anemia: No Asthma: No Cancer: No Cardiac Disorders: Yes (MVP) CVA: No COPD: No CHF: No Dementia: No Diabetes: No GI Disorders: Yes (IBS, REFLUX, GASTROPARESIS) Disorders: No HTN: No Hypercholesterolemia: No Liver Disease: No Seizures: No Thyroid Disease: No - Surgical History Abdominal Surgery: No Appendectomy: No Cardiac Surgery: No Cholecystectomy: No Lung Surgery: No Neurologic Surgery: No Orthopedic Surgery: Yes (LEFT ROTART CUFF REPAIR) - Reproductive History Is Patient Now?: No - Immunization History Immunization Up to Date: Yes - Psycho-Social/Smoking History Smoking Status: No Smoking History: Never smoked Have you smoked in the past 12 months: No Number of Cigarettes Smoked Daily: 0 Information on smoking cessation initiated: Yes - Substance Abuse Hx (Audit-C & DAST Scrn) How often the patient has a drink containing alcohol: Never Score: In Men: 4 or > Positive; In Women: 3 or > Positive: 0 Screen Result (Pos requires Nsg. Audit-10AR): Negative In the last yr the pt used illegal drug/Rx for NonMed reason: No Score: Yes response is considered Positive: 0 Screen Result (Positive result requires Nsg. DAST-10): Negative Review of Systems - Review of Systems Constitutional: No: Chills, Fever *Physical Exam - Vital Signs Last Vital Signs Temp Pulse Resp BP Pulse Ox 98.1 F 69 18 109/77 99 06/29/20 10:42 06/29/20 10:42 06/29/20 10:42 06/29/20 10:42 06/29/20 10:42 - Physical Exam General Appearance: Yes: Appropriately Dressed. No: Apparent Distress HEENT: positive: Normal Voice Neck: positive: Supple Respiratory/Chest: negative: Respiratory Distress Integumentary: positive: Dry, Warm, Other (erythematous patch w/ several adjacent mm sized erythematous papules c/w tinea to R inframammary area) Neurologic: positive: Fully Oriented, Alert, Normal Mood/Affect Medical Decision Making - Medical Decision Making 06/29/20 10:58 No sig hx Here w/ pruritic rash to b/l inframammary area, R>>L, x 1 week No obvious inciting factors No f/c No h/o same Exam c/w tinea Dc w/ top azole, preventative measures d/w pt Discharge - Discharge Information Problems reviewed: Yes Clinical Impression/Diagnosis: Tinea corporis Condition: Good Disposition: HOME - Additional Discharge Information Prescriptions: Clotrimazole [Alevazol] 56.7 gm TP BID #1 oint...g. - Follow up/Referral - Patient Discharge Instructions Patient Printed Discharge Instructions: DI for Tinea Corporis Additional Instructions: Apply ointment as directed Apply drying powder to affected sites in the future to try and prevent recurrence - Post Discharge Activity
--- OUTSIDE RECORDS SUMMARY | 2020-06-29 11:29 | XMS ---
:1965 Author Organization [facility] Support Name Relationship Address Phone [facility] Unavailable [address] [place] [address] [facility] Unavailable [address] [place] [address] [employer] [address] [facility] [address] Re-disclosure Warning The records that you are about to access may contain information from federally- assisted alcohol or drug abuse programs. If such information is present, then the following federally mandated warning applies: This information has been disclosed to you from records protected by federal confidentiality rules (42 CFR part 2). The federal rules prohibit you from making any further disclosure of this information unless further disclosure is expressly permitted by the written consent of the person to whom it pertains or as otherwise permitted by 42 CFR part 2. A general authorization for the release of medical or other information is NOT sufficient for this purpose. The Federal rules restrict any use of the information to criminally investigate or prosecute any alcohol or drug abuse patient.The records that you are about to access may contain highly sensitive health information, the redisclosure of which is protected by Article 27-F of the [facility] Public Health law. If you continue you may haveaccess to information: Regarding HIV / AIDS; Provided by facilities licensed or operated by the [facility] Office of Mental Health; or Provided by the [facility] Office for People With Developmental Disabilities. If such information is present, then the following [facility] mandated warning applies: This information has been disclosed to you from confidential records which are protected by state law. State law prohibits you from making any further disclosure of this information without the specific written consent of the person to whom it pertains, or as otherwise permitted by law. Any unauthorized further disclosure in violation of state law may result in a fine or care home sentence or both. A general authorization for the release of medical or other information is NOT sufficient authorization for further disclosure. Insurance Providers Payer name Policy type Policy ID Covered Covered democrat's Policy P nivia / Coverage democrat ID relationship to Feng Inf ormation type feng LOCAL [id number] - [id number] [facility] SEL[employer] PAY INSURANCE Results ID Date Data Source [id number] 04/19/2020 08:38:00 AM EDT [facility] Name Value Range Interpretation Description Data Sup porting Code Source(s) Document(s ) SARS [facility] coronavirus 2 RNA This lab was ordered by [facility] and reported by [facility]. Procedure
== END 2020-06-29 11:08 | disposition home or self-care (01) ==
LOC: JER 10:32 → JERFT 10:32
DX: B35.4 Tinea corporis (principal)
CPT/HCPCS: 99282-25

== ENCOUNTER 2021-07-19 07:46 | Emergency (ER) | payer OTHER ==
[2021-07-19 08:22] VITALS: BP 96/66; PULSE 56; TEMP 97.6; BMI 26.4
[2021-07-19] MEDS ORDERED: KETOROLAC TROMETHAMINE 30 MG/1 ML VIAL IM ONE (08:49)
[2021-07-19] MEDS ORDERED: KETOROLAC TROMETHAMINE 30 MG/1 ML VIAL ONE (08:58)
[2021-07-19] MEDS ORDERED: LIDOCAINE 5% TOPICAL PATCH TP ONE (09:16)
[2021-07-19] MEDS ORDERED: LIDOCAINE 5% TOPICAL PATCH ONE (09:21)
[2021-07-19] MEDS ORDERED: LIDOCAINE PATCH REMOVAL MC ONE (22:00)
== END 2021-07-19 09:43 | disposition home or self-care (01) ==
LOC: JER 07:46 → JERFT 07:46
PROC: 3E0233Z Introduction of Anti-inflammatory into Muscle, Percutaneous Approach (ICD-10-PCS; principal; 2021-07-19)
DX: M54.50 Low back pain, unspecified (principal)
CPT/HCPCS: 71046-TC-FY; 71101-TC-LT-FY; 72100-TC-FY; 99284-25

== ENCOUNTER 2021-08-09 13:51 | Emergency (ER) | payer OTHER ==
[2021-08-09 13:59] VITALS: BP 117/78; PULSE 82; TEMP 97.5; BMI 26.4
[2021-08-09] MEDS ORDERED: IBUPROFEN 600 MG TABLET (FP) PO ONE ×2 (14:01→14:05)
== END 2021-08-09 14:37 | disposition home or self-care (01) ==
LOC: JERFT 13:51
DX: M25.562 Pain in left knee (principal); W10.8XXA Fall (on) (from) other stairs and steps, initial encounter
CPT/HCPCS: 73562-TC-LT-FY; 99283-25

== ENCOUNTER 2021-09-28 12:23 | Emergency (ER) | payer OTHER ==
[2021-09-28 12:36] VITALS: BP 119/80; PULSE 81; TEMP 98.2; BMI 25.7
[2021-09-29 14:10] LABS: SARS-CoV-2 NAA Detected (Not Detected)
== END 2021-09-28 13:55 | disposition home or self-care (01) ==
LOC: JER 12:23
DX: J09.X2 Influenza due to identified novel influenza A virus with other respiratory manifestations (principal); R09.82 Postnasal drip; M79.10 Myalgia, unspecified site
CPT/HCPCS: 87804; 99283-25; C9803; U0003; U0005

== ENCOUNTER 2021-10-19 08:02 | Emergency (ER) | payer OTHER ==
[2021-10-19 08:22] VITALS: BP 104/71; PULSE 69; TEMP 97.6; BMI 26.9
== END 2021-10-19 09:35 | disposition home or self-care (01) ==
LOC: JERFT 08:02
DX: R05.9 Cough, unspecified (principal)
CPT/HCPCS: 99283-25

== ENCOUNTER 2022-03-30 04:55 | Day surgery (SDC) | payer OTHER ==
[2022-03-30 09:16] VITALS: BMI 27.4
[2022-03-30 10:49] VITALS: BP 100/56; PULSE 64; TEMP 97.9
== END 2022-03-30 11:11 | disposition home or self-care (01) ==
LOC: JASU-ENDO 04:55
PROVIDERS: ATTEND Internal Medicine Gastroenterology
PROC: 0DBP8ZX Excision of Rectum, Via Natural or Artificial Opening Endoscopic, Diagnostic (ICD-10-PCS; 2022-03-30)
PROC: 0DBK8ZX Excision of Ascending Colon, Via Natural or Artificial Opening Endoscopic, Diagnostic (ICD-10-PCS; principal; 2022-03-30 10:00)
DX: Z12.11 Encounter for screening for malignant neoplasm of colon (principal); K62.1 Rectal polyp; D12.2 Benign neoplasm of ascending colon; K64.8 Other hemorrhoids; K57.30 Diverticulosis of large intestine without perforation or abscess without bleeding; Z86.010 Personal history of colon polyps
CPT/HCPCS: 88305-TC

== ENCOUNTER 2022-05-26 13:02 | Emergency (ER) | payer OTHER ==
[2022-05-26 13:31] VITALS: BP 101/68; PULSE 60; RESP 18; TEMP 97.8; BMI 27.4
== END 2022-05-26 13:43 | disposition home or self-care (01) ==
LOC: JER 13:02 → JERFT 13:02
DX: B37.2 Candidiasis of skin and nail (principal)
CPT/HCPCS: 99281-25

== ENCOUNTER → 2022-11-23 | Day surgery (SDC) | payer OTHER ==
[2022-11-19 13:34] VITALS: BMI 27.4
[~2022-11-23] MED LIST: DEXAMETHASONE SOD PHOSPHATE 10 MG/1 ML VIAL IVPUSH ONE; IOHEXOL 180 MG/1 ML ML IJ ONE; LIDOCAINE 1% P/F 10 MG/ML VIAL PNB ONE; SODIUM CHLORIDE 0.9% P/F 10 ML VIAL IJ ONE
[2022-11-23 11:54] VITALS: BP 124/73; PULSE 68; RESP 20; TEMP 98.1
== END | disposition home or self-care (01) ==
LOC: JASU-SURG 04:15
PROVIDERS: ATTEND Pain Medicine Pain Medicine
DX: Z53.9 Procedure and treatment not carried out, unspecified reason (principal)
CPT/HCPCS: J1100

== ENCOUNTER 2022-11-27 04:20 | Day surgery (SDC) | payer OTHER ==
[2022-11-26 11:01] VITALS: BMI 27.4
[~2022-11-27 04:20] MED LIST changes: +BUPIVACAINE HCL/PF 0.5% (5MG/ML) 10 ML VIAL IJ ONE; -DEXAMETHASONE SOD PHOSPHATE 10 MG/1 ML VIAL IVPUSH ONE; -LIDOCAINE 1% P/F 10 MG/ML VIAL PNB ONE; +LIDOCAINE HCL 1% PRESERVATIVE FREE - 30ML VIAL IJ ONE; -SODIUM CHLORIDE 0.9% P/F 10 ML VIAL IJ ONE; +TRIAMCINOLONE ACET 40MG/1ML VIAL IM ONE
[2022-11-27] MEDS ORDERED: LIDOCAINE HCL/PF 1% SDV 5ML VIAL ONE (07:33)
[2022-11-27] MEDS ORDERED: DEXAMETHASONE SOD PHOSPHATE 10 MG/1 ML VIAL ONE (07:33)
[2022-11-27 11:35] VITALS: RESP 18
[2022-11-27] MEDS ORDERED: DEXAMETHASONE SOD PHOSPHATE 10 MG/1 ML VIAL IVPUSH ONE ×2 (13:53→13:55)
[2022-11-27] MEDS ORDERED: LIDOCAINE HCL 1% PRESERVATIVE FREE - 30ML VIAL IJ ONE ×3 (13:53→13:55)
[2022-11-27] MEDS ORDERED: IOHEXOL 180 MG/1 ML ML IJ ONE ×2 (13:54→13:55)
[2022-11-27 15:06] VITALS: BP 115/61; PULSE 82; TEMP 97.3
== END 2022-11-27 15:22 | disposition home or self-care (01) ==
LOC: JASU-SURG 04:20
PROVIDERS: ATTEND Pain Medicine Pain Medicine
PROC: 3E0R3BZ Introduction of Anesthetic Agent into Spinal Canal, Percutaneous Approach (ICD-10-PCS; 2022-11-27)
PROC: 3E0R33Z Introduction of Anti-inflammatory into Spinal Canal, Percutaneous Approach (ICD-10-PCS; principal; 2022-11-27 13:30)
DX: M54.16 Radiculopathy, lumbar region (principal)
CPT/HCPCS: 76000-TC-FY; J1100

== ENCOUNTER 2022-12-25 10:38 | Emergency (ER) | payer OTHER ==
[2022-12-25 10:54] VITALS: BP 109/78; PULSE 87; RESP 18; TEMP 98.9; BMI 27.8
== END 2022-12-25 11:50 | disposition home or self-care (01) ==
LOC: JERFT 10:38
DX: U07.1 COVID-19 (principal); R50.9 Fever, unspecified; R09.81 Nasal congestion; R05.1 Acute cough; M79.10 Myalgia, unspecified site; R19.4 Change in bowel habit
CPT/HCPCS: 0241U-QW; 99283-25

== ENCOUNTER 2023-06-28 16:03 | Emergency (ER) | payer OTHER ==
[2023-06-28 16:19] VITALS: BP 114/77; PULSE 78; RESP 16; TEMP 98.1; BMI 28.1
== END 2023-06-28 17:02 | disposition home or self-care (01) ==
LOC: JERFT 16:03
DX: M25.551 Pain in right hip (principal); M25.552 Pain in left hip; X50.3XXA Overexertion from repetitive movements, initial encounter; Y93.01 Activity, walking, marching and hiking
CPT/HCPCS: 99283-25

== ENCOUNTER 2024-07-02 16:06 | Emergency (ER) | payer OTHER ==
[2024-07-02 16:15] VITALS: BP 111/75; PULSE 75; RESP 16; TEMP 98.5; BMI 25.0
[2024-07-02] MEDS ORDERED: NAPROXEN 500 MG TABLET ONE (16:31)
[2024-07-02] MEDS: NAPROXEN 500 MG TABLET PO ONE (16:33)
[2024-07-02 18:12] LABS: HIV INTERPRETATION NEGATIVE (NEGATIVE)
== END 2024-07-02 17:08 | disposition home or self-care (01) ==
LOC: JERFT 16:06
DX: S46.911A Strain of unspecified muscle, fascia and tendon at shoulder and upper arm level, right arm, initial encounter (principal); X58.XXXA Exposure to other specified factors, initial encounter
CPT/HCPCS: 36415; 73030-TC-RT-FY; 86803; 87389; 99284-25